=== PATIENT | female | born 1960 | race Caucasian/White ===

== ENCOUNTER 2017-08-23 20:01 | Emergency (ER) | payer OTHER ==
[2017-08-23 20:33] VITALS: BP 107/59; PULSE 100; TEMP 98.2; BMI 35.9
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
== END 2017-08-23 21:11 | disposition home or self-care (01) ==
LOC: JERFT 20:01
PROC: 2W3RX1Z Immobilization of Left Lower Leg using Splint (ICD-10-PCS; principal; 2017-08-23)
DX: S93.402A Sprain of unspecified ligament of left ankle, initial encounter (principal); W17.89XA Other fall from one level to another, initial encounter; V78.4XXA Person boarding or alighting from bus injured in noncollision transport accident, initial encounter; Y92.414 Local residential or business street as the place of occurrence of the external cause; Y93.89 Activity, other specified; Y99.8 Other external cause status
CPT/HCPCS: 29515; 73560-TC-LT-FY; 73610-TC-LT-FY; 99281-25

== ENCOUNTER 2017-12-13 16:43 | Emergency (ER) | payer OTHER ==
[2017-12-13] MEDS ORDERED: ACETAMINOPHEN 325 MG TABLET (FP) PO ONE (16:55)
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
[2017-12-13 17:21] VITALS: BP 143/76; PULSE 92; TEMP 100; BMI 36.1
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
[2017-12-13] MEDS ORDERED: KETOROLAC TROMETHAMINE 30 MG/1 ML VIAL IM ONE (19:14)
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
[2017-12-13] MEDS ORDERED: KETOROLAC TROMETHAMINE 30 MG/1 ML VIAL ONE (19:32)
[2017-12-13 20:18] LABS: URINE APPEARANCE CLEAR; URINE BILIRUBIN NEGATIVE (<2.0 mg/dL); URINE COLOR LTYELLOW; URINE GLUCOSE (UA) NEGATIVE (NEGATIVE); URINE KETONE NEGATIVE (NEGATIVE); URINE LEUK ESTERASE 1+ (NEGATIVE); URINE NITRITE NEGATIVE (NEGATIVE); URINE PROTEIN NEGATIVE (NEGATIVE); URINE UROBILINOGEN NEGATIVE mg/dL (0.2-1.0)
[2017-12-13 20:37] LABS: EPI CELLS RARE /HPF (FEW); URINE BACTERIA RARE /hpf (NONE SEEN); URINE MUCUS RARE
== END 2017-12-13 21:05 | disposition home or self-care (01) ==
LOC: JER 16:43
PROC: 3E0233Z Introduction of Anti-inflammatory into Muscle, Percutaneous Approach (ICD-10-PCS; principal; 2017-12-13)
DX: M54.5 Low back pain (principal); J06.9 Acute upper respiratory infection, unspecified; B97.89 Other viral agents as the cause of diseases classified elsewhere; V79.88XA Bus occupant (driver) (passenger) injured in other specified transport accidents, initial encounter; Y92.414 Local residential or business street as the place of occurrence of the external cause; Y93.89 Activity, other specified; Y99.8 Other external cause status
CPT/HCPCS: 71046-TC-FY; 72100-TC-FY; 81003; 81015; 96372; 99282-25

== ENCOUNTER → 2017-12-14 | Emergency (ER) | payer OTHER ==
[2017-12-15 00:22] VITALS: BP 111/72; PULSE 86; TEMP 99.5; BMI 36.1
== END | disposition home or self-care (01) ==
LOC: JER 23:50
PROC: 3E0337Z Introduction of Electrolytic and Water Balance Substance into Peripheral Vein, Percutaneous Approach (ICD-10-PCS; principal; 2017-12-14)
PROC: 3E033NZ Introduction of Analgesics, Hypnotics, Sedatives into Peripheral Vein, Percutaneous Approach (ICD-10-PCS; 2017-12-14)
PROC: 3E033GC Introduction of Other Therapeutic Substance into Peripheral Vein, Percutaneous Approach (ICD-10-PCS; 2017-12-14)
PROC: 3E033GC Introduction of Other Therapeutic Substance into Peripheral Vein, Percutaneous Approach (ICD-10-PCS; 2017-12-14)
PROC: 3E033GC Introduction of Other Therapeutic Substance into Peripheral Vein, Percutaneous Approach (ICD-10-PCS; 2017-12-14)
DX: J18.1 Lobar pneumonia, unspecified organism (principal); N39.0 Urinary tract infection, site not specified
CPT/HCPCS: 96361; 96374; 96375; 99281-25

== ENCOUNTER 2017-12-15 11:04 | Emergency (ER) | payer OTHER ==
[2017-12-15 11:31] VITALS: BMI 36.1
--- NOTE | 2017-12-15 11:53 | PDOC ---
History of Present Illness <Dari Nunez - Last Filed: 12/15/17 18:37> - General History Source: Patient Exam Limitations: No Limitations - History of Present Illness Initial Comments: 12/15/17 12:15 57 year old female with PMH seizure disorder, cholecystectomy presented to ED complaining of left flank pain x2 days. She admits to nausea, vomiting, fever, headache, RUQ and LLQ pain. She describes her headache as band-like across her forehead, aggravated by light, no alleviating factors. She states the flank pain radiates to her groin, is alleviated with motrin (last took at 0300 today) , no aggravating factors. She denies diarrhea, constipation, chest pain, shortness of breath, numbness, weakness, dizziness, visual changes. She was seen at [facility] ED 12/13/17 for back pain, was diagnosed with a UTI, was prescribed Macrobid. The patient states she did not cone picker her prescription until yesterday. She also complains of productive yellow cough since yesterday. Allergies - NKDA PCP - Radha <Alissa Deras - Last Filed: 12/15/17 22:55> - General Chief Complaint: Pain, Acute Stated Complaint: PAIN Time Seen by Provider: 12/15/17 11:53 Past History <Dari Nunez - Last Filed: 12/15/17 18:37> - Past Medical History Anemia: No Asthma: No Cancer: No Cardiac Disorders: No CVA: No COPD: No CHF: No Dementia: No Diabetes: No GI Disorders: Yes (REFLUX) Disorders: No HTN: No Hypercholesterolemia: No Liver Disease: No Seizures: Yes (EPILEPSY) Thyroid Disease: No - Surgical History Cholecystectomy: Yes (12/2015) - Immunization History Immunization Up to Date: Yes - Suicide/Smoking/Psychosocial Hx Smoking History: Never smoked Have you smoked in the past 12 months: No Number of Cigarettes Smoked Daily: 0 Cigars Per Day: 0 Hx Alcohol Use: No Drug/Substance Use Hx: No Substance Use Type: None <Alissa Deras - Last Filed: 12/15/17 22:55> - Past Medical History Allergies/Adverse Reactions: Allergies Allergy/AdvReac Type Severity Reaction Status Date / Time No Known Drug Allergies Allergy Verified 12/15/17 00:19 Home Medications: Ambulatory Orders Acetaminophen [Tylenol] 325 mg PO BID 12/15/17 Ondansetron [Zofran Odt -] 4 mg SL TID #8 od.tablet 12/15/17 Phenobarbital 32.4 mg PO BID 12/15/17 Phenytoin Na Extended [Dilantin -] 100 mg PO BID 12/15/17 Ranitidine HCl [Zantac] 150 mg PO DAILY 12/15/17 Topiramate [Topamax] 50 mg PO BID 12/15/17 levoFLOXacin [Levaquin] 750 mg PO DAILY #4 tab 12/15/17 Review of Systems - Review of Systems Able to Perform ROS?: Yes Comments:: 12/15/17 12:18 General: admits to fever, chills, generalized weakness. HEENT: denies sore throat, rhinorrhea, ear pain. Heart: denies chest pain, palpitations, syncope, lower extremity swelling, diaphoresis. Respiratory: admits to cough, sputum production. denies shortness of breath, hemoptysis. Abdomen: admits to abdominal pain, nausea, vomiting. denies diarrhea, constipation, blood in stool. : admits to left flank pain. denies dysuria, increased urinary frequency, hematuria, urinary incontinence. Back: admits to back pain. Musculoskeletal: denies joint pain, joint swelling. Neurological: admits to headache. denies dizziness, numbness, tingling, weakness. Skin: denies rash, laceration, abrasion. <Alissa Deras - Last Filed: 12/15/17 22:55> *Physical Exam - Vital Signs Last Vital Signs Temp Pulse Resp BP Pulse Ox 98.4 F 85 20 117/74 96 12/15/17 17:48 12/15/17 17:48 12/15/17 17:48 12/15/17 17:48 12/15/17 11:27 <Dari Nunez - Last Filed: 12/15/17 18:37> - Vital Signs Last Vital Signs Temp Pulse Resp BP Pulse Ox 101 F H 85 20 129/67 96 12/15/17 11:27 12/15/17 11:27 12/15/17 11:27 12/15/17 11:27 12/15/17 11:27 - Physical Exam Comments: 12/15/17 12:20 Constitutional: Well-nourished, Well-developed, appearing stated age. HEENT: head is normocephalic, atraumatic. EOMI. PERRLA. Neck: supple. Full ROM. Heart: regular rhythm. no murmurs, rubs or gallops. Lungs: clear to auscultation bilaterally. no crackles, rhonchi or wheezing. no stridor. Abdomen: soft. tenderness to LUQ and LLQ. normal bowel sounds. no rebound, guarding, masses. Back: no tenderness to palpation of mid-line t-spine or L-spine. no CVA tenderness bilaterally. no tenderness to palpation of low back. Extremities: Peripheral pulses intact. No lower extremity edema. Neurological: CN 2-12 grossly intact. Moves all four extremities. Psych: awake, alert, oriented x3. Follows commands. Answers questions appropriately. <Alissa Deras - Last Filed: 12/15/17 22:55> ED Treatment Course - LABORATORY CBC & Chemistry Diagram: 12/15/17 12:33 12/15/17 12:33 - ADDITIONAL ORDERS Additional order review: Laboratory Results 12/15/17 12/15/17 12/15/17 12:35 12:33 12:33 PT with INR INR PTT (Actin FS) VBG pH POC VBG pCO2 POC VBG pO2 Mixed VBG HCO3 Sodium 139 Cancelled Potassium 3.8 Cancelled Chloride 104 Cancelled Carbon Dioxide 27 Cancelled Anion Gap 8 Cancelled BUN 6 L Cancelled Creatinine 0.6 Cancelled Creat Clearance w eGFR > 60 Cancelled Random Glucose 92 Cancelled Lactic Acid 1.1 Calcium 8.8 Cancelled Total Bilirubin 0.3 Cancelled AST 25 Cancelled ALT 23 Cancelled Alkaline Phosphatase 173 H Cancelled Troponin I < 0.02 Total Protein 8.4 H Cancelled Albumin 3.7 Cancelled Urine Color Urine Appearance Urine pH Ur Specific [place] Urine Protein Urine Glucose (UA) Urine Ketones Urine Blood Urine Nitrite Urine Bilirubin Urine Urobilinogen Ur Leukocyte Esterase Urine WBC (Auto) Urine RBC (Auto) Urine Mucus Phenytoin 12/15/17 12/15/17 12/15/17 12:33 12:33 12:05 PT with INR 12.40 INR 1.05 PTT (Actin FS) 24.1 L VBG pH Cancelled POC VBG pCO2 Cancelled POC VBG pO2 Cancelled Mixed VBG HCO3 Cancelled Sodium Potassium Chloride Carbon Dioxide Anion Gap BUN Creatinine Creat Clearance w eGFR Random Glucose Lactic Acid Calcium Total Bilirubin AST ALT Alkaline Phosphatase Troponin I Total Protein Albumin Urine Color Yellow Urine Appearance Clear Urine pH 7.0 Ur Specific [place] 1.014 Urine Protein Negative Urine Glucose (UA) Negative Urine Ketones Negative Urine Blood 1+ H Urine Nitrite Negative Urine Bilirubin Negative Urine Urobilinogen Negative Ur Leukocyte Esterase Negative Urine WBC (Auto) None Urine RBC (Auto) 1 Urine Mucus Rare Phenytoin 12/15/17 12:04 PT with INR INR PTT (Actin FS) VBG pH POC VBG pCO2 POC VBG pO2 Mixed VBG HCO3 Sodium Potassium Chloride Carbon Dioxide Anion Gap BUN Creatinine Creat Clearance w eGFR Random Glucose Lactic Acid Calcium Total Bilirubin AST ALT Alkaline Phosphatase Troponin I Total Protein Albumin Urine Color Urine Appearance Urine pH Ur Specific [place] Urine Protein Urine Glucose (UA) Urine Ketones Urine Blood Urine Nitrite Urine Bilirubin Urine Urobilinogen Ur Leukocyte Esterase Urine WBC (Auto) Urine RBC (Auto) Urine Mucus Phenytoin 14.8 12/15/17 16:01 Influenza Types A,B Antigen - Final Nasopharyngeal Swab - Final 12/15/17 12:33 RBC 4.47 MCV 90.8 MCHC 32.7 RDW 13.4 MPV 9.9 Neutrophils % 77.6 Lymphocytes % 9.8 D Monocytes % 10.7 H Eosinophils % 1.6 Basophils % 0.3 - Medications Given in the ED: ED Medications Discontinued Medications Generic Name Dose Route Start Last Admin Trade Name Freq PRN Reason Stop Dose Admin Acetaminophen 1,000 mg 12/15/17 12:03 12/15/17 13:27 Ofirmev Injection - IVPB 12/15/17 12:04 1,000 mg ONCE ONE Administration Diphenhydramine HCl 12.5 mg 12/15/17 16:40 12/15/17 17:11 Benadryl Injection - IVPUSH 12/15/17 16:41 12.5 mg ONCE ONE Administration Sodium Chloride 1,000 mls @ 1,000 mls/hr 12/15/17 12:03 12/15/17 13:26 Normal Saline - IV 12/15/17 13:02 1,000 mls/hr ASDIR STA Administration Ibuprofen 600 mg 12/15/17 15:36 12/15/17 15:56 Motrin - PO 12/15/17 15:37 600 mg ONCE ONE Administration Levofloxacin 750 mg 12/15/17 13:31 12/15/17 14:09 Levaquin - PO 12/15/17 13:32 750 mg ONCE ONE Administration Metoclopramide HCl 10 mg 12/15/17 16:40 12/15/17 17:11 Reglan Injection - IVPUSH 12/15/17 16:41 10 mg ONCE ONE Administration Ondansetron HCl 4 mg 12/15/17 12:03 12/15/17 13:10 Zofran Injection IVPUSH 12/15/17 12:04 4 mg ONCE ONE Administration <Dari Nunez - Last Filed: 12/15/17 18:37> - LABORATORY CBC & Chemistry Diagram: 12/15/17 12:33 12/15/17 12:33 <Alissa Deras - Last Filed: 12/15/17 22:55> Medical Decision Making - Medical Decision Making 12/15/17 12:37 57 year old female with PMH seizure disorder, cholecystectomy presents to ED for left flank pain associated with N/V/LUQ pain/LLQ pain/headache/fever. The patient was diagnosed with a UTI 12/13/17 at [facility] ED, she was noncompliant with Macrobid, did not pick it up and take it until 12/14/17. - No urine culture results from prior visit Initial Vital Signs Temp Pulse Resp BP Pulse Ox 101 F H 85 20 129/67 96 12/15/17 11:27 12/15/17 11:27 12/15/17 11:27 12/15/17 11:27 12/15/17 11:27 Febrile. - IVF ordered - IV Tylenol ordered No tachycardia. No tachypnea. No hypotension - Severe sepsis unlikely No hypoxia on room air. EKG performed at 1326 - rate 84, regular rhythm, left axis, normal intervals, non-specific ST changes. Concern for UTI/Pyelo - Pending CBC, UA/UC, lactate, coags Concern for sepsis - Pending Blood cultures Low concern for pneumonia, c/o productive cough, but lungs clear to auscultation - Pending CXR Concern for inadequate seizure medications - Pending depakote level Low concern for ACS/ increased cardiac demand - Pending EKG, cardiac enzymes Low concern for diverticulitis - LLQ pain and tenderness, but also c/o LUQ pain/ L flank pain, no c/o diarrhea/constipation. - 01/21/16 Abdomen/Pelvis CT did not reveal diverticulosis. EKG performed at 1326 - rate 84, regular rhythm, left axis, normal intervals, non-specific ST changes. 12/15/17 12:51 Urine Test Results Urine Color Yellow 12/15/17 12:05 Urine Appearance Clear 12/15/17 12:05 Urine pH 7.0 (5.0-8.0) 12/15/17 12:05 Ur Specific [place] 1.014 (1.010-1.035) 12/15/17 12:05 Urine Protein Negative (NEGATIVE) 12/15/17 12:05 Urine Glucose (UA) Negative (NEGATIVE) 12/15/17 12:05 Urine Ketones Negative (NEGATIVE) 12/15/17 12:05 Urine Blood 1+ (NEGATIVE) H 12/15/17 12:05 Urine Nitrite Negative (NEGATIVE) 12/15/17 12:05 Urine Bilirubin Negative (<2.0 mg/dL) 12/15/17 12:05 Ur Leukocyte Esterase Negative (NEGATIVE) 12/15/17 12:05 Urine Mucus Rare 12/15/17 12:05 Patient started taking her antibiotic yesterday, in the setting of being on antibiotics, the patient may have pyelo, despite negative UA. 12/15/17 13:02 CBC WBC 9.4 K/mm3 (4.0-10.0) 12/15/17 12:33 RBC 4.47 M/mm3 (3.60-5.2) 12/15/17 12:33 Hgb 13.3 GM/dL (10.7-15.3) 12/15/17 12:33 Hct 40.6 % (32.4-45.2) 12/15/17 12:33 MCV 90.8 fl (80-96) 12/15/17 12:33 MCH 29.7 pg (25.7-33.7) 12/15/17 12:33 MCHC 32.7 g/dl (32.0-36.0) 12/15/17 12:33 RDW 13.4 % (11.6-15.6) 12/15/17 12:33 Plt Count 194 K/MM3 (134-434) 12/15/17 12:33 MPV 9.9 fl (7.5-11.1) 12/15/17 12:33 Absolute Neuts (auto) 7.3 K/mm3 (1.5-8.0) 12/15/17 12:33 Neutrophils % 77.6 % (42.8-82.8) 12/15/17 12:33 Lymphocytes % 9.8 % (8-40) D 12/15/17 12:33 Monocytes % 10.7 % (3.8-10.2) H 12/15/17 12:33 Eosinophils % 1.6 % (0-4.5) 12/15/17 12:33 Basophils % 0.3 % (0-2.0) 12/15/17 12:33 Nucleated RBC % 0 % (0-0) 12/15/17 12:33 No leukocytosis. - Pt does not meet SIRS No anemia. 12/15/17 13:12 CXR report - increased density in right base, possibly representing an early infiltrate. 12/15/17 13:25 Pt reassessed, states the nausea has resolved. Pt requested ice chips. - Liquid PO challenge initiated. 12/15/17 14:25 CMP Sodium 139 mmol/L (136-145) 12/15/17 12:33 Potassium 3.8 mmol/L (3.5-5.1) 12/15/17 12:33 Chloride 104 mmol/L (98-107) 12/15/17 12:33 Carbon Dioxide 27 mmol/L (21-32) 12/15/17 12:33 Anion Gap 8 MMOL/L (8-16) 12/15/17 12:33 BUN 6 mg/dL (7-18) L 12/15/17 12:33 Creatinine 0.6 mg/dL (0.55-1.3) 12/15/17 12:33 Creat Clearance w eGFR > 60 (>60) 12/15/17 12:33 Random Glucose 92 mg/dL (74-106) 12/15/17 12:33 Lactic Acid 1.1 mmol/L (0.4-2.0) 12/15/17 12:35 Calcium 8.8 mg/dL (8.5-10.1) 12/15/17 12:33 Total Bilirubin 0.3 mg/dL (0.2-1) 12/15/17 12:33 AST 25 U/L (15-37) 12/15/17 12:33 ALT 23 U/L (13-61) 12/15/17 12:33 Alkaline Phosphatase 173 U/L (45-117) H 12/15/17 12:33 Troponin I < 0.02 ng/ml (0.00-0.05) 12/15/17 12:33 Total Protein 8.4 g/dl (6.4-8.2) H 12/15/17 12:33 Albumin 3.7 g/dl (3.4-5.0) 12/15/17 12:33 No electrolyte abnormalities. No acute kidney injury. No lactic acidosis. Elevated ALP. - chronic based on multiple lab results over two years Troponin normal. Pt reassessed, tolerated liquid PO challenge. Dilantin level within normal limits. 12/15/17 14:35 Pt reassessed, sleeping comfortably. 12/15/17 15:37 Pt reassessed, reports improvement in abdominal pain, but no improvement of headache. - Motrin ordered [place] and juice given to pt. - Solid food PO challenge initiated. 12/15/17 15:59 Pt reports she did not take her antiseizure medication today. I told the patient she can take her usual dose of her home medication that she has with her. 12/15/17 16:23 CT A/P report - no intrabdominal pathology. right lobe infiltrate noted. 12/15/17 16:40 Pt reassessed, states no improvement of headache. - She states she did not eat the sandwich because she does not like it - She states drank the juice, no N/V reported - Reglan and Benadryl ordered 12/15/17 17:04 Flu swab negative. 12/15/17 17:10 Pt reassessed, sleeping comfortably. Pt will be discharged with Levaquin prescription to treat both her possible UTI and pneumonia. I spoke with the patient about return precautions, she stated she understood. I spoke with the patient about the importance of following up with PCP. She stated she understood. <Alissa Deras - Last Filed: 12/15/17 22:55> *DC/Admit/Observation/Transfer - Discharge Dispostion Decision to Admit order: No <Dari Nunez - Last Filed: 12/15/17 18:37> - Discharge Dispostion Decision to Admit order: No <Alissa Deras - Last Filed: 12/15/17 22:55> Diagnosis at time of Disposition: Cough Pneumonia Qualifiers: Pneumonia type: due to unspecified organism Laterality: right Lung location: lower lobe of lung Qualified Code(s): J18.1 - Lobar pneumonia, unspecified organism Urinary tract infection Qualifiers: Urinary tract infection type: site unspecified Hematuria presence: without hematuria Qualified Code(s): N39.0 - Urinary tract infection, site not specified - Discharge Dispostion Disposition: HOME Condition at time of disposition: Good - Prescriptions Prescriptions: levoFLOXacin [Levaquin] 750 mg PO DAILY #4 tab Ondansetron [Zofran Odt -] 4 mg SL TID #8 od.tablet - Referrals Referrals: Alex Choi [Primary Care Provider] - - Patient Instructions Printed Discharge Instructions: DI for Pneumonia -- Adult, DI for Urinary Tract Infection (UTI), DI for Vomiting -- Adult Additional Instructions: You were seen today for back pain, nausea, vomiting, cough. Your blood work was normal, other than an elevated Alkaline Phosphatase, which has been elevated in the past based on our prior lab work. - Follow up with your primary care doctor on this result Your flu testing was negative. Your CT of your abdomen and pelvis revealed - an infiltrate in the right lung, likely representing pneumonia, but NO abdominal problems were identified. Your urine analysis revealed no sign of infection, but in the setting of antibiotic use, this could be a false negative. Your chest X-ray revealed a possible early pneumonia on the right. - I have prescribed you an antibiotic that will treat both infections and sent it to your pharmacy. Pick it up today and take as advised on label. - You received the first dose in the Emergency Department - Your next dose will be tomorrow around noon - Take an over the counter pro-biotic to avoid antibiotic associated diarrhea I have also sent a prescription for Zofran, an anti-nausea medication, to your pharmacy. Take as advised on label. Pick it up today. Take Tylenol and/or Motrin over the counter for your fever and body aches. Take as advised on labels. - Do not take both Motrin and Aleve at the same time. - Tylenol and Motrin are different drugs and are okay to take at the same time. Follow up with your primary care doctor within 1-2 days. Call their office Saturday morning and make an appointment for as soon as available. Tell them you have been seen in the Emergency Department multiple times over the weekend. Your care is not complete until you follow up. Return to the Emergency Department for increasing pain, blood in urine, lightheadedness, fever >105 or lasting >3 days, chest pain, shortness of breath , or any other new, worsening or concerning symptoms. - Post Discharge Activity
[2017-12-15] MEDS ORDERED: SODIUM CHLORIDE 1,000 ML IV STA (12:03)
[2017-12-15] MEDS ORDERED: ONDANSETRON 4 MG/2 ML VIAL IVPUSH ONE (12:03)
[2017-12-15] MEDS ORDERED: ACETAMINOPHEN 1000 MG/100 ML VIAL (NON FORMULARY) IVPB ONE (12:03)
--- NOTE | 2017-12-15 12:11 | PDOC ---
Attending Attestation - Resident Resident Name: Alissa Deras - HPI HPI: 12/15/17 13:49 Pt presents to the ED complaining of generalized malaise, cough with post tussive emesis, fevers and L sided flank and abdominal pain for one week. Seen in the ED two days ago, told that she had UTI, prescribed macrobid which she just started taking yesterday. Denies dysuria. 12/15/17 16:58 12/15/17 17:03 - Physicial Exam PE: 12/15/17 17:15 Agree with resident exam. Patient is alert and in NAD. Lungs are clear. abdomen is mildly tender to deep palpation. No CVA tenderness. - Medical Decision Making 12/15/17 17:37 Pt presents to the ED complaining of flank pain, cough and post tussive emesis. CXR shows small infiltrate. Given fever and persistent cough, will treat for PNA. Given history of UTI with flank pain, concern for pyelo. UA is negative, but patient has already started antibiotics. CT checked to rule out intraabdominal pathology and is negative. NAusea has resolved and is now tolerating PO. Will discharge home.
[2017-12-15 12:27] LABS: URINE APPEARANCE CLEAR; URINE BILIRUBIN NEGATIVE (<2.0 mg/dL); URINE COLOR YELLOW; URINE GLUCOSE (UA) NEGATIVE (NEGATIVE); URINE KETONE NEGATIVE (NEGATIVE); URINE LEUK ESTERASE NEGATIVE (NEGATIVE); URINE NITRITE NEGATIVE (NEGATIVE); URINE PROTEIN NEGATIVE (NEGATIVE); URINE UROBILINOGEN NEGATIVE mg/dL (0.2-1.0)
[2017-12-15 12:49] LABS: URINE MUCUS RARE
[2017-12-15 12:55] LABS: BASO % 0.3 % (0-2.0); EOS % 1.6 % (0-4.5); HEMATOCRIT 40.6 % (32.4-45.2); HEMOGLOBIN 13.3 GM/dL (10.7-15.3); LYMPH % 9.8 % (8-40); MCH 29.7 pg (25.7-33.7); MCHC 32.7 g/dl (32.0-36.0); MEAN CELL VOLUME 90.8 fl (80-96); MEAN PLT VOLUME 9.9 fl (7.5-11.1); MONO % 10.7 % (3.8-10.2); NEUT % 77.6 % (42.8-82.8); PLATELET COUNT 194 K/MM3 (134-434); RBC 4.47 M/mm3 (3.60-5.2); RDW 13.4 % (11.6-15.6); WHITE BLOOD COUNT 9.4 K/mm3 (4.0-10.0)
[2017-12-15] MEDS ORDERED: ACETAMINOPHEN INJECTION 100 ML IVPB ONE (13:03)
[2017-12-15] MEDS ORDERED: ONDANSETRON 4 MG/2 ML VIAL ONE (13:04)
[2017-12-15 13:40] LABS: ALBUMIN 3.7 g/dl (3.4-5.0); ALK PHOS 173 U/L (45-117); ANION GAP 8 MMOL/L (8-16); BILIRUBIN,TOTAL 0.3 mg/dL (0.2-1); BLOOD UREA NITROGEN 6 mg/dL (7-18); CALCIUM 8.8 mg/dL (8.5-10.1); CHLORIDE 104 mmol/L (98-107); CO2 27 mmol/L (21-32); CREATININE 0.6 mg/dL (0.55-1.3); GLUCOSE,RANDOM 92 mg/dL (74-106); POTASSIUM 3.8 mmol/L (3.5-5.1); SGOT/AST 25 U/L (15-37); SGPT/ALT 23 U/L (13-61); SODIUM 139 mmol/L (136-145); TOT PROT 8.4 g/dl (6.4-8.2)
[2017-12-15 13:45] LABS: INR 1.05 (0.83-1.09); PROTHROMBIN TIME (PATIENT) 12.4 SEC (9.7-13.0)
[2017-12-15 13:48] LABS: ACTIVATED PTT 24.1 SECONDS (25.2-36.5)
[2017-12-15] MEDS ORDERED: IBUPROFEN 600 MG TABLET (FP) PO ONE ×2 (15:36→15:53)
[2017-12-15] MEDS ORDERED: METOCLOPRAMIDE HCL INJECTION 10 MG/2 ML VIAL IVPUSH ONE (16:40)
[2017-12-15] MEDS ORDERED: METOCLOPRAMIDE HCL INJECTION 10 MG/2 ML VIAL ONE (16:58)
[2017-12-15 17:49] VITALS: TEMP 98.4
[2017-12-15 19:09] VITALS: BP 114/73; PULSE 90
--- NOTE | 2017-12-16 10:28 | EKG ---
Test Reason : Blood Pressure : / mmHG Vent. Rate : 084 BPM Atrial Rate : 084 BPM P-R Int : 150 ms QRS Dur : 090 ms QT Int : 364 ms P-R-T Axes : 059 -35 036 degrees QTc Int : 430 ms NORMAL SINUS RHYTHM LEFT AXIS DEVIATION ABNORMAL ECG WHEN COMPARED WITH ECG OF 27-DEC-2015 17:41, T WAVE VARIATION Confirmed by HEATHER BOYER MD ([id number]) on 12/16/2017 10:28:28 AM Referred By: Confirmed By:HEATHER BOYER MD
== END 2017-12-15 19:09 | disposition home or self-care (01) ==
LOC: JER 11:04
PROC: 3E033GC Introduction of Other Therapeutic Substance into Peripheral Vein, Percutaneous Approach (ICD-10-PCS; principal; 2017-12-15)
PROC: 3E033NZ Introduction of Analgesics, Hypnotics, Sedatives into Peripheral Vein, Percutaneous Approach (ICD-10-PCS; 2017-12-15)
DX: J18.1 Lobar pneumonia, unspecified organism (principal); N39.0 Urinary tract infection, site not specified; R50.9 Fever, unspecified
CPT/HCPCS: 36415; 71045-TC-FY; 74176-TC; 80053; 80185; 81003; 81015; 83605; 84484; 85025; 85610; 85730; 87040; 87086; 87804; 93005; 93010; 96374; 96375; 99284-25; J0131; J7030

== ENCOUNTER 2020-01-21 18:11 | Emergency (ER) | payer OTHER ==
[2020-01-21 18:29] VITALS: BP 123/68; PULSE 81; TEMP 97.7; BMI 35.2
[2020-01-21] MEDS ORDERED: DIPHTH,PERTUSS(ACELL),TET 0.5 ML DISP.SYRIN IM ONE ×2 (18:45→18:47)
[2020-01-21] MEDS ORDERED: IBUPROFEN 600 MG TABLET (FP) PO ONE ×2 (18:45→18:46)
== END 2020-01-21 19:49 | disposition home or self-care (01) ==
LOC: JER 18:11 → JERFT 18:11
PROC: 0HQGXZZ Repair Left Hand Skin, External Approach (ICD-10-PCS; principal; 2020-01-21)
PROC: 3E0234Z Introduction of Serum, Toxoid and Vaccine into Muscle, Percutaneous Approach (ICD-10-PCS; 2020-01-21)
DX: S61.412A Laceration without foreign body of left hand, initial encounter (principal)
CPT/HCPCS: 90715; 99284-25

== ENCOUNTER 2021-04-17 23:28 | Emergency (ER) | payer OTHER ==
[2021-04-17 23:35] VITALS: BP 156/88; PULSE 83; TEMP 98.1; BMI 33.6
[2021-04-18] MEDS ORDERED: SODIUM CHLORIDE 0.9% 500 ML INFUS.BAG IV ONE (00:33)
[2021-04-18] MEDS ORDERED: FAMOTIDINE 20 MG/50 ML IVPB 50 ML IVPB ONE (00:34)
[2021-04-18] MEDS ORDERED: ONDANSETRON 4 MG/2 ML VIAL IVPUSH ONE (00:34)
[2021-04-18] MEDS ORDERED: ACETAMINOPHEN 1000 MG/100 ML BAG IVPB ONE ×2 (00:39→00:40)
[2021-04-18] MEDS ORDERED: ACETAMINOPHEN INJECTION 100 ML IVPB ONE (00:45)
[2021-04-18] MEDS ORDERED: ONDANSETRON 4 MG/2 ML VIAL ONE (00:45)
[2021-04-18 01:45] LABS: HEMATOCRIT 37.5 % (32.4-45.2); HEMOGLOBIN 12.4 GM/dL (10.7-15.3); MCH 30.1 pg (25.7-33.7); MEAN CELL VOLUME 91.1 fl (80-96); MEAN PLT VOLUME 9.8 fl (7.5-11.1); PLATELET COUNT 212 10^3/uL (134-434); RBC 4.11 M/mm3 (3.60-5.2); WHITE BLOOD COUNT 11.7 K/mm3 (4.0-10.0)
[2021-04-18 02:04] LABS: MAGNESIUM 1.7 mg/dL (1.8-2.4)
[2021-04-18 02:05] LABS: CALCIUM 9.1 mg/dL (8.5-10.1)
[2021-04-18 02:06] LABS: ALBUMIN 3.6 g/dl (3.4-5.0); BLOOD UREA NITROGEN 19.4 mg/dL (7-18)
[2021-04-18 02:08] LABS: CREATININE 0.6 mg/dL (0.55-1.3)
[2021-04-18 02:09] LABS: PHOSPHOROUS 4.3 mg/dL (2.5-4.9)
[2021-04-18 02:10] LABS: BILIRUBIN,TOTAL 0.2 mg/dL (0.2-1); TOT PROT 7.6 g/dl (6.4-8.2)
[2021-04-18 02:42] LABS: PH,URINE 5.5 (5.0-8.0); URINE APPEARANCE CLEAR; URINE BILIRUBIN NEGATIVE (NEGATIVE); URINE COLOR YELLOW; URINE GLUCOSE (UA) NEGATIVE (NEGATIVE); URINE KETONE NEGATIVE (NEGATIVE); URINE LEUK ESTERASE NEGATIVE (NEGATIVE); URINE NITRITE NEGATIVE (NEGATIVE); URINE PROTEIN NEGATIVE (NEGATIVE); URINE UROBILINOGEN 0.2 mg/dL (0.2-1.0)
== END 2021-04-18 05:29 ==
LOC: JER 23:28
PROC: 3E0333Z Introduction of Anti-inflammatory into Peripheral Vein, Percutaneous Approach (ICD-10-PCS; principal; 2021-04-17)
PROC: 3E033GC Introduction of Other Therapeutic Substance into Peripheral Vein, Percutaneous Approach (ICD-10-PCS; 2021-04-17)
PROC: 3E033GC Introduction of Other Therapeutic Substance into Peripheral Vein, Percutaneous Approach (ICD-10-PCS; 2021-04-17)
DX: R10.9 Unspecified abdominal pain (principal)
CPT/HCPCS: 36415; 71046-TC-FY; 74177-TC; 80053; 81003; 82550; 83605; 83690; 83735; 84100; 84484; 85027; 87086; 93005; 93010; 99285-25

== ENCOUNTER 2021-05-03 23:17 | Emergency (ER) | payer OTHER ==
[2021-05-03 23:33] VITALS: TEMP 98; BMI 33.1
[2021-05-03] MEDS ORDERED: ACETAMINOPHEN 1000 MG/100 ML BAG IVPB ONE (23:58)
[2021-05-04] MEDS ORDERED: ACETAMINOPHEN INJECTION 100 ML IVPB ONE (00:09)
[2021-05-04 00:37] LABS: BASO % 0.3 % (0-2.0); EOS % 2.3 % (0-4.5); HEMATOCRIT 35.7 % (32.4-45.2); HEMOGLOBIN 11.9 GM/dL (10.7-15.3); LYMPH % 19.9 % (8-40); MCHC 33.2 g/dl (32.0-36.0); MEAN CELL VOLUME 90.2 fl (80-96); MONO % 10.3 % (3.8-10.2); NEUT % 67.2 % (42.8-82.8); PLATELET COUNT 221 10^3/uL (134-434); RBC 3.96 M/mm3 (3.60-5.2); RDW 13.7 % (11.6-15.6); WHITE BLOOD COUNT 9.3 K/mm3 (4.0-10.0)
[2021-05-04 00:41] LABS: BLOOD UREA NITROGEN 22.1 mg/dL (7-18); CALCIUM 8.8 mg/dL (8.5-10.1)
[2021-05-04 00:42] LABS: ALBUMIN 3.3 g/dl (3.4-5.0)
[2021-05-04 00:44] LABS: CREATININE 0.7 mg/dL (0.55-1.3)
[2021-05-04 00:46] LABS: BILIRUBIN,TOTAL 0.2 mg/dL (0.2-1)
[2021-05-04 03:01] VITALS: BP 111/60; PULSE 58
== END 2021-05-04 04:20 | disposition home or self-care (01) ==
LOC: JER 23:17
PROC: 3E033GC Introduction of Other Therapeutic Substance into Peripheral Vein, Percutaneous Approach (ICD-10-PCS; principal; 2021-05-03)
DX: F43.0 Acute stress reaction (principal); R07.9 Chest pain, unspecified
CPT/HCPCS: 36415; 71045-TC-FY; 80053; 84484; 85025; 93005; 93010; 96374; 99285-25

== ENCOUNTER 2021-12-04 09:57 | Emergency (ER) | payer OTHER ==
[2021-12-04 10:05] VITALS: BP 121/71; PULSE 78; RESP 18; TEMP 98; BMI 34.9
[2021-12-04] MEDS ORDERED: CEPHALEXIN MONOHYDRATE 500 MG CAPSULE (UD) PO ONE (11:52)
[2021-12-04] MEDS ORDERED: PHENAZOPYRIDINE HCL 100 MG TABLET (FP) PO ONE (11:53)
[2021-12-04] MEDS ORDERED: PHENAZOPYRIDINE HCL 100 MG TABLET (FP) ONE (11:58)
[2021-12-04] MEDS ORDERED: CEPHALEXIN MONOHYDRATE 500 MG CAPSULE (UD) ONE (11:58)
[2021-12-04 14:07] LABS: EPI CELLS >36 /uL (0-25.1); HYALINE CASTS 1 /uL (0-3.1); URINE APPEARANCE TURBID; URINE BACTERIA 5267 /uL (0-1359); URINE BILIRUBIN 2+ (NEGATIVE); URINE COLOR RED; URINE GLUCOSE (UA) NEGATIVE (NEGATIVE); URINE KETONE NEGATIVE (NEGATIVE); URINE LEUK ESTERASE 3+ (NEGATIVE); URINE NITRITE POSITIVE (NEGATIVE); URINE PROTEIN 2+ (NEGATIVE); URINE WBC 2863 /uL (0-25.8)
[2021-12-04 14:18] LABS: URINE CRYSTALS NEGATIVE /hpf; URINE RBC 51.1 /uL (0-23.9); YEAST NEGATIVE (NEGATIVE)
== END 2021-12-04 13:56 | disposition home or self-care (01) ==
LOC: JERFT 09:57 → JER 09:57 → JERFT 13:56
DX: S60.221A Contusion of right hand, initial encounter (principal); N30.00 Acute cystitis without hematuria; W22.8XXA Striking against or struck by other objects, initial encounter
CPT/HCPCS: 73130-TC-RT-FY; 81003; 87086; 87186; 99284-25

== ENCOUNTER 2022-06-30 22:25 | Emergency (ER) | payer OTHER ==
[2022-06-30 22:39] VITALS: BP 132/76; PULSE 79; RESP 20; TEMP 98.7; BMI 36.3
== END 2022-07-01 00:10 | disposition home or self-care (01) ==
LOC: JER 22:25
DX: S30.0XXA Contusion of lower back and pelvis, initial encounter (principal); S62.502A Fracture of unspecified phalanx of left thumb, initial encounter for closed fracture; W10.9XXA Fall (on) (from) unspecified stairs and steps, initial encounter
CPT/HCPCS: 72170-TC-FY; 72220-TC-FY; 73130-TC-RT-FY; 99285-25

== ENCOUNTER 2022-07-01 11:40 | Emergency (ER) | payer OTHER ==
[2022-07-01 11:44] VITALS: BP 112/77; PULSE 89; RESP 18; TEMP 98; BMI 37.1
== END 2022-07-01 13:10 | disposition home or self-care (01) ==
LOC: JERFT 11:40
DX: S62.524A Nondisplaced fracture of distal phalanx of right thumb, initial encounter for closed fracture (principal); M25.531 Pain in right wrist; M79.641 Pain in right hand; W10.8XXA Fall (on) (from) other stairs and steps, initial encounter; Y92.018 Other place in single-family (private) house as the place of occurrence of the external cause
CPT/HCPCS: 73110-TC-RT-FY; 73130-TC-RT-FY; 99283-25

== ENCOUNTER 2022-09-18 14:33 | Emergency (ER) | payer OTHER ==
[2022-09-18 14:39] VITALS: RESP 18; BMI 37.1
[2022-09-18] MEDS ORDERED: ACETAMINOPHEN 1000 MG/100 ML BAG IVPB ONE (15:51)
[2022-09-18] MEDS ORDERED: ACETAMINOPHEN INJECTION 100 ML IVPB ONE (15:56)
[2022-09-18 16:10] LABS: BASO % 0.7 % (0-2.0); EOS % 4.3 % (0-4.5); HEMATOCRIT 36.6 % (32.4-45.2); HEMOGLOBIN 11.9 GM/dL (10.7-15.3); LYMPH % 26.4 % (8-40); MCH 29.2 pg (25.7-33.7); MCHC 32.4 g/dl (32.0-36.0); MEAN CELL VOLUME 90.2 fl (80-96); MEAN PLT VOLUME 9.8 fl (7.5-11.1); MONO % 11.9 % (3.8-10.2); NEUT % 56.7 % (42.8-82.8); PLATELET COUNT 229 10^3/uL (134-434); RBC 4.06 M/mm3 (3.60-5.2); RDW 13.9 % (11.6-15.6); WHITE BLOOD COUNT 6.1 K/mm3 (4.0-10.0)
[2022-09-18 16:18] LABS: POTASSIUM 3.7 mmol/L (3.5-5.1)
[2022-09-18 16:21] LABS: ALBUMIN 3.1 g/dl (3.4-5.0); BLOOD UREA NITROGEN 15.7 mg/dL (7-18)
[2022-09-18 16:23] LABS: CREATININE 0.6 mg/dL (0.55-1.3)
[2022-09-18 16:25] LABS: BILIRUBIN,TOTAL 0.1 mg/dL (0.2-1)
[2022-09-18 18:47] LABS: EPI CELLS 4 /uL (0-25.1); HYALINE CASTS 0 /uL (0-3.1); PH,URINE 5.5 (5.0-8.0); URINE APPEARANCE CLEAR; URINE BACTERIA 60 /uL (0-1359); URINE BILIRUBIN NEGATIVE (NEGATIVE); URINE COLOR YELLOW; URINE GLUCOSE (UA) NEGATIVE (NEGATIVE); URINE KETONE NEGATIVE (NEGATIVE); URINE LEUK ESTERASE TRACE (NEGATIVE); URINE NITRITE NEGATIVE (NEGATIVE); URINE PROTEIN NEGATIVE (NEGATIVE); URINE RBC 6 /uL (0-23.9); URINE UROBILINOGEN 0.2 mg/dL (0.2-1.0); URINE WBC 19 /uL (0-25.8)
[2022-09-18 19:45] VITALS: BP 123/65; PULSE 62; TEMP 97.8
== END 2022-09-18 20:00 | disposition home or self-care (01) ==
LOC: JER 14:33
PROC: 3E033NZ Introduction of Analgesics, Hypnotics, Sedatives into Peripheral Vein, Percutaneous Approach (ICD-10-PCS; principal; 2022-09-18)
DX: R42 Dizziness and giddiness (principal); R07.89 Other chest pain
CPT/HCPCS: 36415; 71045-TC-FY; 80053; 81003; 82962; 83690; 83735; 84484; 85025; 87086; 93005; 93010; 99285-25

== ENCOUNTER 2023-01-26 10:10 | Emergency (ER) | payer OTHER ==
[2023-01-26 10:19] VITALS: BP 111/54; PULSE 88; RESP 18; TEMP 98.3; BMI 40.3
[2023-01-26] MEDS ORDERED: KETOROLAC TROMETHAMINE 15 MG/ML VIAL IM ONE (11:11)
[2023-01-26] MEDS ORDERED: ACETAMINOPHEN 500 MG TABLET (FP) PO ONE (11:11)
[2023-01-26] MEDS ORDERED: DEXAMETHASONE SOD PHOSPHATE 10 MG/1 ML VIAL IM ONE (11:11)
[2023-01-26] MEDS ORDERED: ACETAMINOPHEN 500 MG TABLET (FP) ONE (11:15)
[2023-01-26] MEDS ORDERED: KETOROLAC TROMETHAMINE 15 MG/ML VIAL ONE (11:15)
[2023-01-26] MEDS ORDERED: DEXAMETHASONE SOD PHOSPHATE 10 MG/1 ML VIAL ONE (11:16)
== END 2023-01-26 11:57 | disposition home or self-care (01) ==
LOC: JERFT 10:10
PROC: 3E0233Z Introduction of Anti-inflammatory into Muscle, Percutaneous Approach (ICD-10-PCS; principal; 2023-01-26)
PROC: 3E023GC Introduction of Other Therapeutic Substance into Muscle, Percutaneous Approach (ICD-10-PCS; 2023-01-26)
DX: M54.50 Low back pain, unspecified (principal); G89.29 Other chronic pain
CPT/HCPCS: 99284-25; J1100

== ENCOUNTER 2023-02-14 11:00 | Emergency (ER) | payer OTHER ==
[2023-02-14 11:08] VITALS: RESP 18; BMI 40.0
[2023-02-14 13:19] LABS: BASO % 0.5 % (0-2.0); EOS % 3.7 % (0-4.5); HEMATOCRIT 36.5 % (32.4-45.2); LYMPH % 23.7 % (8-40); MCH 29.9 pg (25.7-33.7); MCHC 32.8 g/dl (32.0-36.0); MEAN CELL VOLUME 91.2 fl (80-96); MONO % 14.8 % (3.8-10.2); NEUT % 57.3 % (42.8-82.8); PLATELET COUNT 237 10^3/uL (134-434); RDW 13.7 % (11.6-15.6); WHITE BLOOD COUNT 6.1 K/mm3 (4.0-10.0)
[2023-02-14 13:20] LABS: INR 0.95 (0.83-1.09)
[2023-02-14 13:23] LABS: ACTIVATED PTT 32.4 SECONDS (25.2-36.5)
[2023-02-14] MEDS ORDERED: MAG HYDROX/AL HYDROX/SIMETH 30 ML UNIT-DOSE CUP PO ONE (13:34)
[2023-02-14] MEDS ORDERED: FAMOTIDINE 20 MG/50 ML IVPB 20 MG/50 ML MG IVPB ONE ×2 (13:34→14:06)
[2023-02-14] MEDS ORDERED: ACETAMINOPHEN 1000 MG/100 ML BAG IVPB ONE (13:34)
[2023-02-14 13:49] LABS: POTASSIUM 4.2 mmol/L (3.5-5.1)
[2023-02-14 13:50] LABS: CALCIUM 8.6 mg/dL (8.5-10.1)
[2023-02-14 13:51] LABS: ALBUMIN 3.3 g/dl (3.4-5.0); BLOOD UREA NITROGEN 20.9 mg/dL (7-18)
[2023-02-14 13:54] LABS: CREATININE 0.5 mg/dL (0.55-1.3)
[2023-02-14 13:55] LABS: BILIRUBIN,TOTAL 0.2 mg/dL (0.2-1)
[2023-02-14 13:56] LABS: TOT PROT 7.4 g/dl (6.4-8.2)
[2023-02-14] MEDS ORDERED: MAG HYDROX/AL HYDROX/SIMETH 30 ML UNIT-DOSE CUP ONE (14:06)
[2023-02-14] MEDS ORDERED: ACETAMINOPHEN INJECTION 100 ML IVPB ONE (14:06)
[2023-02-14] MEDS ORDERED: ALBUTEROL SO4 2.5/IPRATROPIUM 0.5 INH SOL 3 ML VIAL.NEB. NEB ONE ×2 (14:16→14:24)
[2023-02-14 15:58] VITALS: BP 120/67; PULSE 77; TEMP 97.9
== END 2023-02-14 15:12 | disposition home or self-care (01) ==
LOC: JER 11:00
PROC: 3E033GC Introduction of Other Therapeutic Substance into Peripheral Vein, Percutaneous Approach (ICD-10-PCS; principal; 2023-02-14)
PROC: 3E033NZ Introduction of Analgesics, Hypnotics, Sedatives into Peripheral Vein, Percutaneous Approach (ICD-10-PCS; 2023-02-14)
PROC: 3E0F7GC Introduction of Other Therapeutic Substance into Respiratory Tract, Via Natural or Artificial Opening (ICD-10-PCS; 2023-02-14)
DX: R07.89 Other chest pain (principal); R06.02 Shortness of breath; R09.81 Nasal congestion; R05.9 Cough, unspecified; H92.02 Otalgia, left ear; R51.9 Headache, unspecified; R42 Dizziness and giddiness; R10.13 Epigastric pain; Z20.822 Contact with and (suspected) exposure to COVID-19
CPT/HCPCS: 0241U-QW; 36415; 71045-TC-FY; 80053; 84484; 85025; 85610; 85730; 93005; 93010; 99285-25

== ENCOUNTER 2023-08-09 03:56 | Emergency (ER) | payer OTHER ==
[2023-08-09 04:06] VITALS: BP 122/74; PULSE 72; RESP 18; TEMP 98.4; BMI 38.7
[2023-08-09] MEDS ORDERED: ACETAMINOPHEN 500 MG TABLET (FP) ONE (04:27)
[2023-08-09] MEDS: ACETAMINOPHEN 500 MG TABLET (FP) PO ONE (04:33)
== END 2023-08-09 06:04 | disposition home or self-care (01) ==
LOC: JER 03:56
DX: M25.562 Pain in left knee (principal); W10.9XXA Fall (on) (from) unspecified stairs and steps, initial encounter; Y93.01 Activity, walking, marching and hiking; Y99.0 Civilian activity done for income or pay
CPT/HCPCS: 73564-TC-LT-FY; 99283-25

== ENCOUNTER 2023-09-05 02:11 | Emergency (ER) | payer OTHER ==
[2023-09-05 02:20] VITALS: BP 119/70; PULSE 74; RESP 20; TEMP 98; BMI 39.5
[2023-09-05] MEDS ORDERED: KETOROLAC TROMETHAMINE 30 MG/1 ML VIAL ONE (03:41)
[2023-09-05] MEDS: KETOROLAC TROMETHAMINE 30 MG/1 ML VIAL IM ONE (03:48)
== END 2023-09-05 03:49 | disposition home or self-care (01) ==
LOC: JER 02:11
PROC: 3E0133Z Introduction of Anti-inflammatory into Subcutaneous Tissue, Percutaneous Approach (ICD-10-PCS; principal; 2023-09-05)
DX: M79.604 Pain in right leg (principal)
CPT/HCPCS: 99284-25

== ENCOUNTER 2023-09-09 09:31 | Emergency (ER) | payer OTHER ==
[2023-09-09 09:48] VITALS: BP 129/75; PULSE 73; RESP 16; TEMP 98.2; BMI 39.5
[2023-09-09] MEDS ORDERED: LIDOCAINE 4% PATCH TP ONE (10:56)
[2023-09-09] MEDS: LIDOCAINE 4% PATCH TP ONE (11:01)
[2023-09-09] MEDS: IBUPROFEN 600 MG TABLET (FP) PO ONE (13:31)
[2023-09-09] MEDS ORDERED: LIDOCAINE PATCH REMOVAL MC SCH (22:00)
== END 2023-09-09 13:53 | disposition home or self-care (01) ==
LOC: JERFT 09:31
DX: M79.661 Pain in right lower leg (principal); W18.30XA Fall on same level, unspecified, initial encounter
CPT/HCPCS: 72100-TC-FY; 93971-TC; 99284-25

== ENCOUNTER 2023-09-25 09:39 | Emergency (ER) | payer OTHER ==
[2023-09-25 09:49] VITALS: BP 122/80; PULSE 76; RESP 18; TEMP 97.6; BMI 38.9
== END 2023-09-25 10:32 | disposition home or self-care (01) ==
LOC: JERFT 09:39
DX: M25.561 Pain in right knee (principal); M25.571 Pain in right ankle and joints of right foot; W18.30XA Fall on same level, unspecified, initial encounter
CPT/HCPCS: 99283-25

== ENCOUNTER 2023-12-14 01:07 | Emergency (ER) | payer OTHER ==
[2023-12-14 01:20] VITALS: BP 117/89; PULSE 75; RESP 18; TEMP 98; BMI 38.7
[2023-12-14] MEDS ORDERED: IBUPROFEN 400 MG TABLET (FP) PO ONE (02:25)
[2023-12-14] MEDS ORDERED: ACETAMINOPHEN 325 MG TABLET (FP) ONE (02:26)
[2023-12-14] MEDS: ACETAMINOPHEN 325 MG TABLET (FP) PO ONE (02:28)
[2023-12-14] MEDS: IBUPROFEN 400 MG TABLET (FP) PO ONE (02:28)
== END 2023-12-14 04:47 | disposition home or self-care (01) ==
LOC: JER 01:07
DX: M79.641 Pain in right hand (principal); W19.XXXA Unspecified fall, initial encounter; Y99.0 Civilian activity done for income or pay
CPT/HCPCS: 73110-TC-RT-FY; 73130-TC-RT-FY; 99283-25

== ENCOUNTER 2024-03-14 02:46 | Emergency (ER) | payer OTHER ==
[2024-03-14 02:51] VITALS: BP 138/76; PULSE 92; RESP 18; TEMP 98.2; BMI 38.7
[2024-03-14] MEDS ORDERED: ACETAMINOPHEN 500 MG TABLET (FP) ONE (04:59)
[2024-03-14] MEDS ORDERED: DEXAMETHASONE 4 MG TABLET (FP) ONE (04:59)
[2024-03-14] MEDS: ACETAMINOPHEN 500 MG TABLET (FP) PO ONE (05:04)
[2024-03-14] MEDS: DEXAMETHASONE 4 MG TABLET (FP) PO ONE (05:05)
== END 2024-03-14 05:17 | disposition home or self-care (01) ==
LOC: JER 02:46
DX: U07.1 COVID-19 (principal); R51.9 Headache, unspecified; R53.81 Other malaise; R50.9 Fever, unspecified; R05.9 Cough, unspecified; R09.81 Nasal congestion
CPT/HCPCS: 0241U-QW; 99283-25

== ENCOUNTER 2024-03-15 15:33 | Emergency (ER) | payer OTHER ==
[2024-03-15 15:55] VITALS: BP 110/73; PULSE 99; RESP 18; TEMP 98.4; BMI 38.7
[2024-03-15 17:27] LABS: BASO % 0.3 % (0-2.0); EOS % 2.7 % (0-4.5); HEMATOCRIT 37.4 % (32.4-45.2); HEMOGLOBIN 12.5 GM/dL (10.7-15.3); LYMPH % 18.3 % (8-40); MCH 30.1 pg (25.7-33.7); MCHC 33.3 g/dl (32.0-36.0); MEAN CELL VOLUME 90.4 fl (80-96); MEAN PLT VOLUME 8.9 fl (7.5-11.1); MONO % 10.9 % (3.8-10.2); NEUT % 67.8 % (42.8-82.8); PLATELET COUNT 257 10^3/uL (134-434); RBC 4.14 M/mm3 (3.60-5.2); RDW 14.3 % (11.6-15.6); WHITE BLOOD COUNT 7.9 K/mm3 (4.0-10.0)
[2024-03-15 17:34] LABS: INR 0.98 (0.83-1.09); PROTHROMBIN TIME (PATIENT) 11.3 SEC (9.7-13.0)
[2024-03-15 17:37] LABS: ACTIVATED PTT 33.7 SECONDS (25.2-36.5)
[2024-03-15 17:51] LABS: POTASSIUM 4.4 mmol/L (3.5-5.1)
[2024-03-15 17:53] LABS: ALBUMIN 3.4 g/dl (3.4-5.0); CALCIUM 9.1 mg/dL (8.5-10.1)
[2024-03-15 17:56] LABS: CREATININE 0.6 mg/dL (0.55-1.3)
[2024-03-15 17:58] LABS: BILIRUBIN,TOTAL 0.2 mg/dL (0.2-1); TOT PROT 7.7 g/dl (6.4-8.2)
[2024-03-15] MEDS ORDERED: ACETAMINOPHEN INJECTION 100 ML ONE (21:59)
[2024-03-15] MEDS: ACETAMINOPHEN 1000 MG/100 ML BAG IVPB ONE (22:05)
== END 2024-03-15 22:46 | disposition home or self-care (01) ==
LOC: JER 15:33
PROC: 3E033NZ Introduction of Analgesics, Hypnotics, Sedatives into Peripheral Vein, Percutaneous Approach (ICD-10-PCS; principal; 2024-03-15)
DX: R10.31 Right lower quadrant pain (principal); R09.81 Nasal congestion; R11.0 Nausea; R10.33 Periumbilical pain
CPT/HCPCS: 36415; 74177-TC; 80053; 85025; 85610; 85730; 86850; 86900; 86901; 99285-25; J0131; Q9967

== ENCOUNTER 2024-03-22 06:09 | Emergency (ER) | payer OTHER ==
[2024-03-22 06:20] VITALS: BMI 38.7
[2024-03-22] MEDS ORDERED: ACETAMINOPHEN INJECTION 100 ML ONE (07:34)
[2024-03-22 07:53] LABS: BASO % 0.3 % (0-2.0); EOS % 1.9 % (0-4.5); HEMATOCRIT 37.4 % (32.4-45.2); LYMPH % 11.8 % (8-40); MCH 29.1 pg (25.7-33.7); MCHC 32.2 g/dl (32.0-36.0); MEAN CELL VOLUME 90.4 fl (80-96); MEAN PLT VOLUME 8.9 fl (7.5-11.1); MONO % 9.8 % (3.8-10.2); NEUT % 76.2 % (42.8-82.8); PLATELET COUNT 292 10^3/uL (134-434); RBC 4.14 M/mm3 (3.60-5.2); RDW 13.8 % (11.6-15.6); WHITE BLOOD COUNT 12.5 K/mm3 (4.0-10.0)
[2024-03-22] MEDS: ACETAMINOPHEN 1000 MG/100 ML BAG IVPB ONE (08:01)
[2024-03-22] MEDS ORDERED: FAMOTIDINE 20 MG/50 ML IVPB 20 MG/50 ML MG IVPB ONE (08:02)
[2024-03-22] MEDS ORDERED: ONDANSETRON 4 MG/2 ML VIAL ONE (08:02)
[2024-03-22 08:09] LABS: POTASSIUM 4.5 mmol/L (3.5-5.1)
[2024-03-22] MEDS: SODIUM CHLORIDE 0.9% 500 ML INFUS.BAG IV ONE (08:09)
[2024-03-22] MEDS: ONDANSETRON 4 MG/2 ML VIAL IVPUSH ONE (08:09)
[2024-03-22] MEDS: FAMOTIDINE 20 MG/50 ML IVPB 20 MG/50 ML MG IVPB ONE (08:09)
[2024-03-22 08:11] LABS: ALBUMIN 3.1 g/dl (3.4-5.0)
[2024-03-22 08:12] LABS: BLOOD UREA NITROGEN 19.2 mg/dL (7-18)
[2024-03-22 08:15] LABS: CREATININE 0.5 mg/dL (0.55-1.3)
[2024-03-22 08:16] LABS: BILIRUBIN,TOTAL 0.4 mg/dL (0.2-1); TOT PROT 7.3 g/dl (6.4-8.2)
[2024-03-22 10:48] VITALS: BP 116/61; PULSE 89; RESP 20; TEMP 98.7
== END 2024-03-22 10:53 | disposition home or self-care (01) ==
LOC: JER 06:09
PROC: 3E033GC Introduction of Other Therapeutic Substance into Peripheral Vein, Percutaneous Approach (ICD-10-PCS; principal; 2024-03-22)
PROC: 3E033NZ Introduction of Analgesics, Hypnotics, Sedatives into Peripheral Vein, Percutaneous Approach (ICD-10-PCS; 2024-03-22)
PROC: 3E033GC Introduction of Other Therapeutic Substance into Peripheral Vein, Percutaneous Approach (ICD-10-PCS; 2024-03-22)
DX: R11.2 Nausea with vomiting, unspecified (principal); R19.7 Diarrhea, unspecified; M79.10 Myalgia, unspecified site; Z20.822 Contact with and (suspected) exposure to COVID-19
CPT/HCPCS: 0241U-QW; 36415; 80053; 84484; 85025; 93005; 93010; 99284-25; J0131